=== PATIENT | male | born 1980 | race Caucasian/White ===

== ENCOUNTER 2020-04-21 08:11 | Emergency (ER) | payer SELFPAY ==
[2020-04-21] MEDS ORDERED: Tobramycin Sulfate 0.3% Ophth Susp 5 ml Bottle ONE (08:33)
== END 2020-04-21 08:43 | disposition home or self-care (01) ==
LOC: BURERS 08:11
DX: H10.9 Unspecified conjunctivitis (principal); F17.220 Nicotine dependence, chewing tobacco, uncomplicated
CPT/HCPCS: 99283

== ENCOUNTER 2020-05-05 20:18 | Emergency (ER) | payer SELFPAY ==
[2020-05-05] MEDS ORDERED: Morphine 2 MG/ML SYRINGE ONE (22:14)
[2020-05-05] MEDS ORDERED: Morphine 4 MG/ML VIAL ONE (22:14)
[2020-05-05] MEDS ORDERED: Ketorolac Tromethamine 30 MG/ML VIAL ONE (23:00)
--- NOTE | 2020-05-06 07:16 | RAD ---
RIGHT RIBS WITH PA CHEST: Date: 05/05/2020 A PA film of the chest shows a normal sized heart and mediastinum. The trachea is midline. The lungs are fully inflated and clear. Some calcified granulomas were noted. No effusions or signs of pneumoth orax. Regarding the right ribs, no fractures were appreciated on any of the films. IMPRESSION: No significant findings. POS: HOME
== END 2020-05-05 23:18 | disposition home or self-care (01) ==
LOC: BURERS 20:18
DX: S20.211A Contusion of right front wall of thorax, initial encounter (principal); F17.220 Nicotine dependence, chewing tobacco, uncomplicated; F17.290 Nicotine dependence, other tobacco product, uncomplicated; V89.2XXA Person injured in unspecified motor-vehicle accident, traffic, initial encounter
CPT/HCPCS: 93005; 94799; 96372; J1885; J2270

== ENCOUNTER 2020-05-11 15:47 | Emergency (ER) | payer SELFPAY | END 2020-05-11 16:26 | disposition home or self-care (01) | LOC: BURERS 15:47 | DX: S20.211A Contusion of right front wall of thorax, initial encounter (principal); F17.220 Nicotine dependence, chewing tobacco, uncomplicated; F17.290 Nicotine dependence, other tobacco product, uncomplicated; V89.2XXA Person injured in unspecified motor-vehicle accident, traffic, initial encounter | CPT/HCPCS: 99281 ==

== ENCOUNTER 2020-05-20 00:49 | Emergency (ER) | payer SELFPAY ==
[2020-05-20] MEDS ORDERED: Bacitracin 1 PK ONE (00:52)
[2020-05-20] MEDS ORDERED: Adacel (T-DAP) 0.5 ML SYRINGE ONE (01:07)
== END 2020-05-20 01:13 ==
LOC: BURERS 00:49
DX: S01.01XA Laceration without foreign body of scalp, initial encounter (principal); F19.10 Other psychoactive substance abuse, uncomplicated; F17.220 Nicotine dependence, chewing tobacco, uncomplicated; F17.290 Nicotine dependence, other tobacco product, uncomplicated; Z23 Encounter for immunization; W22.8XXA Striking against or struck by other objects, initial encounter
CPT/HCPCS: 12002; 90471; 90715

== ENCOUNTER 2020-10-26 11:13 | Emergency (ER) | payer SELFPAY ==
[2020-10-26] MEDS ORDERED: Fluorescein Opthalmic Strip ONE (11:46)
[2020-10-26] MEDS ORDERED: Tetracaine 0.5% PF 4 ML BOT ONE (11:46)
[2020-10-26] MEDS ORDERED: Neomycin-Polymyxin-Hc 7.5 ML BOT ONE (11:55)
[2020-10-26] MEDS ORDERED: Boostrix 0.5 ML (Tdap) VIAL ONE (12:02)
== END 2020-10-26 12:32 | disposition home or self-care (01) ==
LOC: BURERS 11:13
DX: T15.01XA Foreign body in cornea, right eye, initial encounter (principal); W22.8XXA Striking against or struck by other objects, initial encounter; Y99.0 Civilian activity done for income or pay; F17.220 Nicotine dependence, chewing tobacco, uncomplicated
CPT/HCPCS: 65220; 90471; 90715

== ENCOUNTER 2020-11-08 10:23 | Emergency (ER) | payer SELFPAY ==
[2020-11-08] MEDS ORDERED: HYDROcodone/Acetaminophen 5/325 mg Tablet ONE (11:22)
--- NOTE | 2020-11-08 13:36 | CT ---
CT OF THE CHEST WITHOUT CONTRAST: 11/08/[address] of the chest was performed for evaluation after a fall. There is a history of prior rib fra ctures. Today's exam shows no obvious acute fractures in the ribs or spine. Both lungs are fully inflated and clear with no sign of pneumothorax, pleural effusion, or parenchymal infiltrate. There is a calcified granuloma in the right lung, probably the superior portion of the right lower lo be. There is an 8 to 9 mm noncalcified nodule in the right upper lobe. There are calcified granulomas in the spleen. The visible portions of the upper abdomen showed no acute findings. IMPRESSION: 1. No acute traumatic findings. 2. Evidence of prior granulomatous disease. 3. 8 to 9 mm noncalcified nodule in the base of the right upper lobe. General recommendations wo uld be to rescan the patient within 12 months to assure stability, unless there was suspicion of canc er elsewhere. Preliminary report called to Bina in ER at 1127 on 11/08/2120. She will call the patient back to alonzo milner the need for follow up of the tiny nodule. POS: HOME
== END 2020-11-08 11:57 | disposition home or self-care (01) ==
LOC: BURERS 10:23
DX: S20.212A Contusion of left front wall of thorax, initial encounter (principal); F17.220 Nicotine dependence, chewing tobacco, uncomplicated; W01.0XXA Fall on same level from slipping, tripping and stumbling without subsequent striking against object, initial encounter
CPT/HCPCS: 71250

== ENCOUNTER 2020-12-31 20:32 | Emergency (ER) | payer SELFPAY ==
[2021-01-01 13:52] LABS: SARS-CoV-2 PCR by NAA Not Detected (NotDetected)
== END 2020-12-31 22:42 | disposition home or self-care (01) ==
LOC: BURERS 20:32
DX: R19.7 Diarrhea, unspecified (principal); R50.9 Fever, unspecified; R05 Cough; Z20.822 Contact with and (suspected) exposure to COVID-19; F17.220 Nicotine dependence, chewing tobacco, uncomplicated
CPT/HCPCS: 87635; 99283; U0003; U0005

== ENCOUNTER 2021-01-12 12:51 | Emergency (ER) | payer SELFPAY ==
[2021-01-12] MEDS ORDERED: Tetracaine 0.5% PF 4 ML BOT ONE (13:11)
[2021-01-12] MEDS ORDERED: Fluorescein Opthalmic Strip ONE (13:11)
[2021-01-12] MEDS ORDERED: Ketorolac Tromethamine 30 MG/ML VIAL ONE (13:11)
== END 2021-01-12 13:19 | disposition home or self-care (01) ==
LOC: BURERS 12:51
DX: S05.01XA Injury of conjunctiva and corneal abrasion without foreign body, right eye, initial encounter (principal); F17.220 Nicotine dependence, chewing tobacco, uncomplicated; W22.8XXA Striking against or struck by other objects, initial encounter
CPT/HCPCS: 96372; 99283; J1885